=== PATIENT | female | born 1995 | race Caucasian/White ===

== ENCOUNTER 2023-01-07 18:10 | Emergency (ER) | payer SELFPAY ==
[2023-01-07 18:16] VITALS: BP 139/84; PULSE 107; RESP 15; TEMP 38; O2SAT 99
[2023-01-07 18:40] VITALS: TEMP 36.7
--- NOTE | 2023-01-07 19:15 | DI.CT_ITS ---
Exam(s) CT ABDOMEN PELVIS WO EXAM: CT ABDOMEN PELVIS WO CLINICAL HISTORY: abdominal pain. TECHNIQUE: Imaging Protocol: Axial computed tomography images with coronal and sagittal reformatted images were created and reviewed. COMPARISON: No exams were available for comparison FINDINGS: ABDOMEN: Lung Bases: Normal where visualized. Liver: Normal density. No measurable mass. Gallbladder and biliary tract: No radiodense calculus or biliary ductal dilation. Pancreas: Normal density, no abnormal calcifications or inflammatory process. Spleen: Normal. Kidneys: Normal size, contour and axis.No radiodense stones or obstructive uropathy. No masses seen. IV contrast is seen in the renal collecting systems consistent with the patient's recent CT examinati on. Adrenal glands: No mass is seen. Lymph nodes: Within normal limits. Abdominal Aorta: Abdominal portion non-dilated. PELVIS: Bladder:Symmetric distention, no gross wall thickening. Bowel: The patient has had a prior partial colonic resection with a left lower quadrant colostomy. T here is no evidence of bowel obstruction or bowel wall thickening. No evidence of appendicitis. Peritoneal cavity: No ascites, collection or mesenteric inflammatory response. No free air. Reproductive organs: Unremarkable as visualized. Bones: Within normal limits. Soft Tissues: Within normal limits. IMPRESSION: No acute abnormality. RADIATION DOSE DELIVERED: Total DLP DATA REPOSITORY: All CT scans at this facility are submitted to the National Radiology Data Registry (NRDR) Dose Index Registry (DIR) with the [employer] (A[employer]). RADIATION OPTIMIZATION: All CT scans at this facility use at least one of these dose optimization te chniques: automated exposure control; mA and/or kV adjustment per patient size (includes targeted exa ms where dose is matched to clinical indication); or iterative reconstruction.
[2023-01-07 19:57] LABS: Abs Immature Grans 0.01 10^3/uL (0.0-0.06); Absolute Basophil Count 0.05 10^3/uL (0.0-0.2); Absolute Eosinophil Count 0.01 10^3/uL (0.0-0.7); Absolute Lymphocyte Count 1.15 10^3/uL (1.2-3.4); Absolute Monocyte Count 0.31 10^3/uL (0.1-0.8); Absolute Neutrophil Count 3.91 10^3/uL (1.2-6.7); Basophils % 0.9; Eosinophils % 0.2; HCT 28.7 % (36.0-46.0); HGB 8.6 g/dL (11.2-15.7); Immature Grans % 0.2; Lactate 1.2 mmol/L (0.6-1.4); Lymphocytes % 21.1; MCH 22.1 pg (27.0-33.0); MCV 74 fL (80-95); Monocytes % 5.7; Neutrophils % 71.9; Platelet Count 243 10^3/uL (130-400); RDW-SD 47.5 fL; WBC 5.44 10^3/uL (4.4-10.8)
[2023-01-07 19:59] LABS: ESR 21 mm/hr (0-20)
[2023-01-07] MEDS: Normal Saline 1,000 ML 1000 ML IV (20:00)
[2023-01-07 20:09] LABS: Diff Comment RBC Morph Reviewed
[2023-01-07 20:10] LABS: Anisocytosis 1+; Hypochromasia 2+; Microcytosis 1+
[2023-01-07 20:11] LABS: Poikilocytes 1+
[2023-01-07 20:16] LABS: ALT 36 U/L (14-59); AST 50 U/L (15-37); Albumin 3.9 g/dL (3.4-5.0); Alkaline Phosphatase 58 U/L (46-116); Anion Gap 9.5 mmol/L (3-11); BUN 10 mg/dL (7-18); Bilirubin, Total 0.6 mg/dL (0.2-1.0); CO2 23.5 mmol/L (21.0-32.0); Calcium 8.9 mg/dL (8.5-10.1); Chloride 105 mmol/L (98-107); Estimated GFR 80.18 (mL/min/1.73m2); Glucose 91 mg/dL (74-106); Lipase 108 U/L (16-77); Magnesium 2.1 mg/dL (1.8-2.4); Potassium 3.4 mmol/L (3.5-5.1); Sodium 138 mmol/L (136-145); Total Protein 7.8 g/dL (6.4-8.2)
[2023-01-07 20:31] LABS: Bilirubin Moderate (Negative); Blood Large (Negative); Clarity Turbid (Clear); Glucose 250 mg/dL (Negative); Ketones 15 mg/dL (Negative); Leukocyte Esterase Large (Negative); Nitrite Positive (Negative)
--- NOTE | 2023-01-07 20:34 | W.ED.GENAD ---
Discharge Plan Disposition Patient Disposition: Home Discharge Details Clinical Impression: UTI (urinary tract infection), Bleeding, Drug-seeking behavior, Abdominal pain Primary Care Provider: Siria,Local ED Provider: Parish Hartman Home Meds and New Rx's Prescriptions: No Action trazodone 100 mg tablet 100 mg PO DAILY gabapentin 600 mg tablet 600 mg PO BID norethindrone acetate 5 mg tablet 10 mg PO QDAY sulfamethoxazole-trimethoprim [Bactrim] .ROUTE Discharge Instructions Additional Instructions: please continue the antibiotics that were prescribed to you for your UTI previously please follow up with your GI doctor for continued issues. Medical Decision Making Emergent evaluation of severe abdominal pain. Initial differential includes bowel obstruction, appendicitis, pancreatitis. Also consider ovarian torsion. Patient has no medical records available. She states that she would like Zofran, even though she has told the nurse that she has anaphylaxis to Zofran. She states that she can get it with 50 mg of IV Benadryl. At this time I will order droperidol for pain and nausea, check lab work and get CT imaging. I have reviewed the patient's medical record and there is nothing available, I have looked at care everywhere via the [facility] system and looked at the prescription monitoring program and there is nothing there either. 1954. There is some difficulty getting IV access. After getting IV access the patient now reports that she has an allergy to droperidol and she cannot have this. She is still requesting IV Benadryl and has been told repeatedly that she will not be getting IV Benadryl. 2029: Patient was in the bathroom and passed the call alfaro and states that she has started bleeding from her vagina. On arrival to the bathroom, she was found to have this fairly significant amount of bright red blood everywhere. Patient was brought back to her room, she continues to remain hemodynamically stable. She is stating that she is having severe pain. I asked to perform a pelvic exam, but the patient declined a speculum exam, external examination reveals that there is blood covering the entire groin and thighs, but no active bleeding, there is no blood actively coming from the vagina. 2049: Contacted by the technical architect who states that the patient who is now on the CT table is telling her that she is allergic to contrast and again requesting Benadryl. The patient has not previously reported a contrast allergy. I advised the technical architect to change the scan to a noncontrast scan. A noncontrast scan was performed however on review of the images, there is obvious contrast in the patient. This is increasing my suspicion further that the patient is not being honest about her name or her full medical history and that it appears she has received a CT scan with contrast at another facility today. 2109: We have asked access to further evaluate the validity of the patient's identification, however patient reports that she does not have any photo identification 2129: I reviewed the CT imaging which does not demonstrate any acute abnormality. I reviewed her medical record, she has stable anemia. She has minimally elevated ESR and CRP that would not make me indicate an acute Crohn's flare. Her lipase is slightly elevated and this may indicate that there is some pancreatitis contributing to her pain. Her urinalysis is difficult to interpret given the amount of blood. There is nitrite positive. She is currently on antibiotics for a urinary tract infection. I recommend that she continue these. At this time the suspicion for malingering is very high. I asked that the patient when she had a CT with IV contrast. And she states that she told us that she had a CT scan of her head on Saturday. She did not report this. She cannot clearly state why she was able to receive contrast on Saturday but today she would need Benadryl for this contrast. Furthermore given the half-life of iodinated contrast, there is no reason to believe that she still has contrast in her abdomen from a CT scan that was done 48 hours ago. At this time I do not feel that there is any additional emergent work-up indicated. I advised the patient that she is stable for discharge and that she needs to follow-up with her GI physicians and surgeons in her reported home of [place]. At that time the patient removed her IV and left the emergency department. Medical Records Medical records reviewed: Yes I reviewed the patient's medical records. Lab Data Lab results reviewed: Yes I reviewed the patient's lab results. HPI General Date/Time Provider Initiated Documentation: 01/07/23 19:13. Limitations to Documentation: no limitations. Information obtained by: patient. HPI Narrative: 27-year-old female with past medical history of Crohn's disease status post colectomy presents for evaluation of severe abdominal pain. She reports that she is traveling here and only visiting from [place]. She says that she is currently not on any medical therapy for her Crohn's disease. She reports that her surgery was done there. She states that she is currently being treated with antibiotics for a UTI. She has not been having any pain or dysuria. She reports severe abdominal pain. She reports that the pain has been ongoing since last night. She reports that she has been vomiting all day. She reports that the pain is localized to the right side of her abdomen. It is severe, constant, nonradiating. She reports that she is having normal ostomy output. Related Data Home Medications Medication Instructions Recorded Confirmed gabapentin 600 mg tablet 600 mg PO BID 01/07/23 01/07/23 norethindrone acetate 5 mg tablet 10 mg PO QDAY 01/07/23 01/07/23 sulfamethoxazole-trimethoprim .ROUTE 01/07/23 trazodone 100 mg tablet 100 mg PO DAILY 01/07/23 01/07/23 Allergies Allergy/AdvReac Type Severity Reaction Status Date / Time Penicillins Allergy Severe Anaphylaxis Unverified 01/07/23 18:23 ketorolac [From Toradol] Allergy Intermediate Unverified 01/07/23 18:23 NSAIDS (Non-Steroidal AdvReac Unknown Unverified 01/07/23 18:23 Anti-Inflamma antiemetics Allergy Intermediate Anaphylaxis Uncoded 01/07/23 18:23 General Stated Complaint: Abd Prob TEAGAN: 3 PFSH All Active Problems (Updated 01/07/23 @ 21:34 by Parish Hartman MD) Abdominal pain (Acute) Drug-seeking behavior (Acute) Bleeding (Acute) UTI (urinary tract infection) (Acute) Social History Smoking/Tobacco Use Status: Never Smoking risk assessment performed?: Yes Alcohol Intake: never Drug use: Occasionally Substance use type: marijuana Do you feel safe at home: Yes Do you feel safe in your relationship?: Yes Exam Narrative Exam Narrative: Review of Systems: All systems reviewed & are unremarkable except as noted in HPI and below: CONSTITUTIONAL: Alert and oriented Well-developed, distressed HEENT: NACT EYES: PERRL, no conjunctival injection EARS: no external abnormality NOSE nares patent MOUTH Moist MM NECK: Symmetric, trachea midline, No thyromegaly THROAT oropharynx clear CVS: Mildly tachycardic, No murmurs or gallops. Peripheral pulses 2+ and equal in all extremities Brisk capillary refill in all extremities. No peripheral edema RESP: Unlabored respiratory effort, Clear to auscultation bilaterally No wheezes rales or rhonchi GI: Soft, not rigid, colostomy in the left lower quadrant, there is generalized tenderness and guarding MSK: Extremities with full range of motion, no deformity or TTP SKIN: Warm, Dry. No rashes or lesions. NEURO: No focal neurologic deficits. Course Vital Signs Vital signs: Vital Signs Temperature 38.0 C H 01/07/23 18:16 Pulse 107 H 01/07/23 18:16 Respiratory Rate 15 01/07/23 18:16 Blood Pressure 139/84 01/07/23 18:16 Pulse Oximetry 99 01/07/23 18:16 Temperature 36.7 C 01/07/23 18:40 Temperature Source Oral 01/07/23 18:40 Pulse 107 H 01/07/23 18:16 Respiratory Rate 15 01/07/23 18:16 Respiratory Effort Normal 01/07/23 18:19 Blood Pressure 139/84 01/07/23 18:16 Blood Pressure Position Sitting 01/07/23 18:16 Pulse Oximetry 99 01/07/23 18:16 Oxygen Delivery Method Room Air 01/07/23 18:16 Oxygen Flow Rate 0 01/07/23 18:16 Pain Level 6 01/07/23 18:20 Lab/Test Results Lab/Test Results: Laboratory Tests Range/Units 01/07/23 01/07/23 19:50 20:27 WBC (4.4-10.8) 10^3/uL 5.44 RBC (3.93-5.22) 10^6/uL 3.90 L Hgb (11.2-15.7) g/dL 8.6 L Hct (36.0-46.0) % 28.7 L MCV (80-95) fL 74 L MCH (27.0-33.0) pg 22.1 L MCHC (32.0-36.0) % 30.0 L RDW (11.7-14.6) % 18.0 H Plt Count (130-400) 10^3/uL 243 MPV (8.0-11.0) fL Immature Gran % 0.2 Neutrophils % 71.9 Lymphocytes % 21.1 Monocytes % 5.7 Eosinophils % 0.2 Basophils % 0.9 Nucleated RBC % (0.0-0.3) % 0.0 Absolute Neutrophils (1.2-6.7) 10^3/uL 3.91 Absolute Lymphocytes (1.2-3.4) 10^3/uL 1.15 L Absolute Monocytes (0.1-0.8) 10^3/uL 0.31 Absolute Eosinophils (0.0-0.7) 10^3/uL 0.01 Absolute Basophils (0.0-0.2) 10^3/uL 0.05 RBC Morphology See Below Hypochromasia 2+ Poikilocytosis 1+ Anisocytosis 1+ Microcytosis 1+ ESR (0-20) mm/hr 21 H VBG Lactate (0.6-1.4) mmol/L 1.2 Sodium (136-145) mmol/L 138 Potassium (3.5-5.1) mmol/L 3.4 L Chloride (98-107) mmol/L 105 Carbon Dioxide (21.0-32.0) mmol/L 23.5 Anion Gap (3-11) mmol/L 9.5 BUN (7-18) mg/dL 10 Creatinine (0.55-1.02) mg/dL 1.0 Est GFR (CKD-EPI 2020) (mL/min/1.73m2) 80.18 Glucose (74-106) mg/dL 91 Calcium (8.5-10.1) mg/dL 8.9 Magnesium (1.8-2.4) mg/dL 2.1 Total Bilirubin (0.2-1.0) mg/dL 0.6 AST (15-37) U/L 50 H ALT (14-59) U/L 36 Alkaline Phosphatase (46-116) U/L 58 C-Reactive Protein (0.0-0.3) mg/dL 0.50 H Total Protein (6.4-8.2) g/dL 7.8 Albumin (3.4-5.0) g/dL 3.9 Lipase (16-77) U/L 108 H Urine Color (Yellow) Cummings Urine Clarity (Clear) Turbid Urine pH (5-8) 5.0 Ur Specific Oaks (1.005-1.025) 1.010 Urine Protein (Negative) mg/dL >=300 H Urine Ketones (Negative) mg/dL 15 H Urine Blood (Negative) Large H Urine Nitrite (Negative) Positive H Urine Bilirubin (Negative) Moderate H Urine Urobilinogen (Up to 0.2) mg/dL 4.0 H Ur Leukocyte Esterase (Negative) Large H Urine Glucose (Negative) mg/dL 250 H
[2023-01-07] MEDS: MORPHine 10 MG/ML VIAL 6 MG IVP (20:36)
[2023-01-07 20:37] LABS: C & S Indicated? Yes; RBC >50 HPF (0-2)
[2023-01-07] MEDS: Omnipaque 350 MG/ML 100 ML BTL IJ (20:52)
--- NOTE | 2023-01-07 21:26 | NUR.NOTE ---
Nursing Note: Pt states that her pain is coming back. MD notified and no new orders at this time.
--- NOTE | 2023-01-07 21:28 | DI.VRAD_ITS ---
PROCEDURE INFORMATION: Exam: CT Abdomen And Pelvis Without Contrast Exam date and time: 01/07/2023 8:53 PM Age: 27 years old Clinical indication: Abdominal pain; Generalized; Prior surgery; Surgery date: 6+ months; Surgery type: Coloctomy TECHNIQUE: Imaging protocol: Computed tomography of the abdomen and pelvis without contrast. Radiation optimization: All CT scans at this facility use at least one of these dose optimization techniques: automated exposure control; mA and/or kV adjustment per patient size (includes targeted exams where dose is matched to clinical indication); or iterative reconstruction. COMPARISON: No relevant prior studies available. FINDINGS: Liver: Normal. No mass. Gallbladder and bile ducts: Normal. No calcified stones. No ductal dilation. Pancreas: Normal. No ductal dilation. Spleen: Normal. No splenomegaly. Adrenal glands: Normal. No mass. Kidneys and ureters: Normal. No hydronephrosis. Stomach and bowel: Left lower quadrant colostomy in place. Bowel loops are normal in caliber no bowel wall thickening or evidence of bowel obstruction. Appendix: No evidence of appendicitis. Intraperitoneal space: Unremarkable. No free air. No significant fluid collection. Vasculature: Unremarkable. No abdominal aortic aneurysm. Lymph nodes: Unremarkable. No enlarged lymph nodes. Urinary bladder: Unremarkable as visualized. Reproductive: Unremarkable as visualized. Bones/joints: Unremarkable. No acute fracture. Soft tissues: Unremarkable. IMPRESSION: No acute abnormality Dictated and Authenticated by: Sunil Echeverria MD. Ordering:SUE Stewart MD
== END 2023-01-07 21:38 | disposition home or self-care (01) ==
PROVIDERS: Emergency Provider Emergency Medicine
DX: N39.0 Urinary tract infection, site not specified (principal); R10.9 Unspecified abdominal pain; R11.0 Nausea; R11.10 Vomiting, unspecified; R58 Hemorrhage, not elsewhere classified; Z83.79 Family history of other diseases of the digestive system
CPT/HCPCS: 36415; 80053; 81025; 83690; 85652; 96361; 96374; 99284; 74176; 81003; 81015; 83605; 83735; 85025; 86140; 87086; 99283; J2270; J3490